=== PATIENT | female | born 1960 | race Caucasian/White ===

== ENCOUNTER → 2016-12-12 | Outpatient (CLI) | payer BC ==
[~2016-12-12] MED LIST: ALBU18HF2 IH; AMIT50TA3 PO; FLEXERIL PO; GABA-338 PO; HYDR-4074 PO; IBUP-1724 PO; SUMA100T PO
--- NOTE | 2016-12-12 12:27 | DI ---
EXAM: CHEST, PA LATERAL COMPARISON: None available. HISTORY: ITS.REASON: R05 COUGH . FINDINGS: The cardiomediastinal silhouette is within limits of normal. The pulmonary vascularity appears unremarkable. The lungs are clear. There is no evidence for pleural effusion. There is no evidence for a pneumothorax. No osseous abnormalities are identified. IMPRESSION: Unremarkable exam. LOCATION OF DICTATION: [facility] – [place] .
== END ==
LOC: IMA 11:55
PROVIDERS: ATTEND Family Medicine
DX: R05 Cough (principal)
CPT/HCPCS: 87486; 87581; 87633; 87798